=== PATIENT | female | born 1990 | race American Indian/Alaskan Native ===

== ENCOUNTER → 2020-06-30 | Emergency (ER) | payer OTHER ==
[~2020-06-30] VITALS: Ht 162.6 cm; Wt 56.7 kg
[~2020-06-30] MED LIST: AZITHROMYCIN250 MG PO; PRENATAL TABLE1 EAC3 PO
== END | disposition home or self-care (01) ==
LOC: ER 03:16
DX: J02.8 Acute pharyngitis due to other specified organisms (principal); B96.0 Mycoplasma pneumoniae [M. pneumoniae] as the cause of diseases classified elsewhere; B37.9 Candidiasis, unspecified; Z20.822 Contact with and (suspected) exposure to COVID-19